=== PATIENT | male | born 1990 | race Caucasian/White ===

== ENCOUNTER 2019-07-09 21:17 | Emergency (ER) | payer OTHER ==
[2019-07-09] MEDS ORDERED: predniSONE 20 MG TAB PO ONE (23:47)
--- NOTE | 2019-07-10 00:39 | Emergency Department Report ---
ED General Adult HPI - General Chief complaint: Medical Clearance Stated complaint: ASTHMA Time Seen by Provider: 07/09/19 23:23 Source: patient Mode of arrival: Ambulatory Limitations: No Limitations - History of Present Illness Initial comments: This is a 28-year-old male with a history of asthma who presents to ED stating that while he was at work earlier he had an asthma attack.. Patient states that the EMT was called in which she received a breathing treatment at that time. 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 Patient denies any coughing or respiratory distress at this time. Patient states he has an inhaler at home and just ran out today. Patient will like a refill of his inhaler. He denies any shortness of breath, cough, fever, runny nose or any other symptoms. - Related Data Previous Rx's Medication Instructions Recorded Last Taken Type Montelukast [Singulair] 10 mg PO QPM #10 tablet 06/25/18 Unknown Rx ALBUTEROL Inhaler (OR & NICU) 1 puff IH Q4-6H PRN #1 inha 12/22/18 Unknown Rx [ProAir HFA Inhaler] Desloratadine [Clarinex] 5 mg PO DAILY #7 tablet 12/22/18 Unknown Rx Fluticasone Propionate [Flovent 12 gm IH DAILY #1 aer.w.adap 12/22/18 Unknown Rx Hfa] hydrOXYzine HCL [Atarax] 25 mg PO Q6HR PRN #20 tablet 12/22/18 Unknown Rx ALBUTEROL Inhaler (OR & NICU) 2 puff IH QID PRN #1 inhalation 07/10/19 Unknown Rx [ProAir HFA Inhaler] ALBUTEROL NEB's [Proventil 0.083% 2.5 mg IH TID PRN #30 neb 07/10/19 Unknown Rx NEBS] predniSONE [Deltasone] 50 mg PO QDAY #5 tab 07/10/19 Unknown Rx Allergies Allergy/AdvReac Type Severity Reaction Status Date / Time No Known Allergies Allergy Verified 12/21/18 19:57 ED Review of Systems ROS: Stated complaint: ASTHMA Other details as noted in HPI Comment: All other systems reviewed and negative ED Past Medical Hx - Past Medical History Previous Medical History?: Yes Hx Asthma: Yes - Surgical History Past Surgical History?: No - Social History Smoking Status: Never Smoker Substance Use Type: None - Medications Home Medications: Home Medications Medication Instructions Recorded Confirmed Last Taken Type Montelukast [Singulair] 10 mg PO QPM #10 tablet 06/25/18 Unknown Rx ALBUTEROL Inhaler (OR & NICU) 1 puff IH Q4-6H PRN #1 inha 12/22/18 Unknown Rx [ProAir HFA Inhaler] Desloratadine [Clarinex] 5 mg PO DAILY #7 tablet 12/22/18 Unknown Rx Fluticasone Propionate [Flovent 12 gm IH DAILY #1 aer.w.adap 12/22/18 Unknown Rx Hfa] hydrOXYzine HCL [Atarax] 25 mg PO Q6HR PRN #20 tablet 12/22/18 Unknown Rx ALBUTEROL Inhaler (OR & NICU) 2 puff IH QID PRN #1 inhalation 07/10/19 Unknown Rx [ProAir HFA Inhaler] ALBUTEROL NEB's [Proventil 0.083% 2.5 mg IH TID PRN #30 neb 07/10/19 Unknown Rx NEBS] predniSONE [Deltasone] 50 mg PO QDAY #5 tab 07/10/19 Unknown Rx ED Physical Exam - General Limitations: No Limitations General appearance: alert, in no apparent distress - Head Head exam: Present: atraumatic, normocephalic - Eye Eye exam: Present: normal appearance - ENT ENT exam: Present: mucous membranes moist - Neck Neck exam: Present: normal inspection, full ROM. Absent: tenderness - Respiratory Respiratory exam: Present: normal lung sounds bilaterally. Absent: respiratory distress, wheezes, chest wall tenderness, accessory muscle use - Cardiovascular Cardiovascular Exam: Present: regular rate, normal rhythm. Absent: systolic murmur, diastolic murmur, rubs, gallop - GI/Abdominal GI/Abdominal exam: Present: soft, normal bowel sounds - Rectal Rectal exam: Present: deferred - Extremities Exam Extremities exam: Present: normal inspection - Back Exam Back exam: Present: normal inspection - Neurological Exam Neurological exam: Present: alert, oriented X3 - Psychiatric Psychiatric exam: Present: normal affect, normal mood - Skin Skin exam: Present: warm, dry, intact, normal color. Absent: rash ED Course Vital Signs 07/09/19 21:47 Temperature 98.2 F Pulse Rate 77 Respiratory 18 Rate Blood Pressure 119/73 O2 Sat by Pulse 97 Oximetry ED Medical Decision Making - Medical Decision Making 28-year-old male presents be medically cleared after anasthma exacerbation happened at work earlier ED course: Patient received a breathing treatment, on seen at the job by EMT and felt better Patient had no respiratory distress in the ED. he received prednisone in the ED Post treatment evaluation: No wheezing heard, no use of accessory muscles, I discussed with the patient to follow up with her primary care physician. I discussed with the patient will be going home on with albuterol inhaler as well as nebulizer Vital signs are normalized, patient is saturation at 99% on room air. I discussed with the patient is symptoms worsen to return to ED immediately. Critical care attestation.: If time is entered above; I have spent that time in minutes in the direct care of this critically ill patient, excluding procedure time. ED Disposition Clinical Impression: Asthma attack Qualifiers: Asthma severity: mild Asthma persistence: intermittent Qualified Code(s): J45.21 - Mild intermittent asthma with (acute) exacerbation Disposition: TO HOME OR SELFCARE Is pt being admited?: No Does the pt Need Aspirin: No Condition: Stable Instructions: Asthma (ED) Additional Instructions: Make sure to follow up with the primary care physician as discussed. Take all your medications as you've been prescribed. If you have any worsening symptoms or develop new symptoms please return to ED immediately. Prescriptions: predniSONE [Deltasone] 50 mg PO QDAY #5 tab ALBUTEROL Inhaler (OR & NICU) [ProAir HFA Inhaler] 2 puff IH QID PRN #1 inhalation PRN Reason: Shortness Of Breath ALBUTEROL NEB's [Proventil 0.083% NEBS] 2.5 mg IH TID PRN #30 neb PRN Reason: Wheezing Referrals: [facility] [Outside] - 3-5 Days Forms: Accompanied Note, Work/School Release Form(ED) Time of Disposition: 00:45
[2019-07-10 01:08] VITALS: BP 138/90
== END 2019-07-10 00:55 | disposition home or self-care (01) ==
LOC: ED 21:17
DX: J45.901 Unspecified asthma with (acute) exacerbation (principal); Z79.899 Other long term (current) drug therapy
CPT/HCPCS: 99282; J7512